=== PATIENT | female | born 1980 | race Caucasian/White ===

== ENCOUNTER → 2018-10-05 | Outpatient (CLI) | payer BC ==
[2018-10-05 16:13] LABS: ADD MAN DIFF? NO
[2018-10-05 16:23] LABS: WHITE BLOOD COUNT 7.7 10^3/ul (4.8-10.8)
[2018-10-05 16:23] LABS: BASOPHILS % 0.5 % (0.0-2.0); EOSINOPHILS # 0.1 10^3/ul (0.0-0.5); EOSINOPHILS % 1.2 % (0.0-7.0); HEMATOCRIT 36.6 % (37.0-47.0); HEMOGLOBIN 11.8 g/dl (12.0-16.0); LYMPHOCYTES # 1.9 10^3/ul (0.8-2.9); LYMPHOCYTES % 24.4 % (15.0-51.0); MEAN CORPUSCULAR HEMOGLOBIN 27.8 pg (29.0-33.0); MEAN CORPUSCULAR HGB CONC 32.2 g/dl (32.0-37.0); MEAN CORPUSCULAR VOLUME 86.3 fl (82.0-101.0); MEAN PLATELET VOLUME 10.3 fl (7.4-10.4); MONOCYTE # 0.5 10^3/ul (0.3-0.9); MONOCYTES % 6.1 % (0.0-11.0); NEUTROPHIL # 5.2 10^3/ul (1.6-7.5); NEUTROPHILS % 67.3 % (39.0-77.0); PLATELET COUNT 308 10^3/UL (140-415); RED BLOOD COUNT 4.24 10^6/ul (4.20-5.40); RED CELL DISTRIBUTION WIDTH 13.2 % (11.5-14.5)
[2018-10-05 16:40] LABS: ALANINE AMINOTRANSFERASE 21 IU/L (13-69); ALBUMIN 4.2 g/dl (3.3-4.9); ALBUMIN/GLOBULIN RATIO 1.27; ALKALINE PHOSPHATASE 76 IU/L (42-121); ANION GAP 10 (5-13); ASPARTATE AMINO TRANSFERASE 25 IU/L (15-46); BILIRUBIN,INDIRECT 0.2 mg/dl (0-1.1); BILIRUBIN,TOTAL 0.2 mg/dl (0.2-1.3); BLOOD UREA NITROGEN 26 mg/dl (7-20); CALCIUM 9.2 mg/dl (8.4-10.2); CARBON DIOXIDE 24 mmol/L (21-31); CHLORIDE 107 mmol/L (97-110); CREATINE KINASE 50 IU/L (23-200); CREATININE 1.18 mg/dl (0.44-1.00); Estimated GFR 52 mL/min (>60); GLUCOSE 88 mg/dl (70-220); POTASSIUM 4.1 mmol/L (3.5-5.1); SODIUM 141 mmol/L (135-144); TOTAL PROTEIN 7.5 g/dl (6.1-8.1)
[2018-10-05 16:45] LABS: INR 0.95; PROTIME 12.8 Sec (11.9-14.9)
[2018-10-05 16:46] LABS: PARTIAL THROMBOPLASTIN TIME 28.3 Sec (23.0-35.0)
[2018-10-05 16:48] LABS: CK INDEX 0.4; CK-MB < 0.22 ng/ml (0.0-2.4)
[2018-10-05 16:53] LABS: TROPONIN-I < 0.012 ng/ml (0.000-0.120)
[2018-10-05 17:04] LABS: COLLAGEN/EPI 119 Secs. (51-198)
== END | disposition home or self-care (01) ==
LOC: LAB 15:51
DX: N05.9 Unspecified nephritic syndrome with unspecified morphologic changes (principal)
CPT/HCPCS: 80053; 82550; 82553; 84484; 85025; 85576; 85610; 85730

== ENCOUNTER 2018-11-02 07:27 | Day surgery (SDC) | payer BC ==
[2018-11-02] MEDS: SOD CHLORIDE 0.9% 500 ML (10:00)
[2018-11-02] MEDS: SOD CHLORIDE 0.9% 1,000 ML IV (10:00)
[2018-11-02] MEDS: MIDAZOLAM 1 MG/ML 2 ML INJ (10:17)
[2018-11-02] MEDS: LIDOCAINE 1% (MPF) 5 ML VIAL (10:18)
[2018-11-02] MEDS: FENTAnyl 50 MCG/ML VIAL (10:19)
[2018-11-02] MEDS: GELATIN 12MM X 7 MM SPONGE (10:43)
== END 2018-11-02 13:02 | disposition home or self-care (01) ==
LOC: SDS 07:27
DX: I12.9 Hypertensive chronic kidney disease with stage 1 through stage 4 chronic kidney disease, or unspecified chronic kidney disease (principal); N18.9 Chronic kidney disease, unspecified
CPT/HCPCS: 50200; 77012